=== PATIENT | female | born 2000 | race Hispanic/Latino ===

== ENCOUNTER 2022-07-31 10:09 | Day surgery (SDC) | payer OTHER ==
[2022-07-31] MEDS ORDERED: Midazolam HCl 2 mg/2 ml Vial ONE (10:38)
[2022-07-31] MEDS ORDERED: Ketorolac Tromethamine 30 MG/ML VIAL ONE (10:38)
[2022-07-31] MEDS ORDERED: Dexamethasone 20 MG/5 ML VIAL ONE (10:38)
[2022-07-31] MEDS ORDERED: Ondansetron PF 4 MG/2 ML Vial ONE (10:38)
[2022-07-31] MEDS ORDERED: Glycopyrrolate 0.2 MG/ML 5 ML SYRINGE ONE (10:38)
[2022-07-31] MEDS ORDERED: PROPOFOL 20 ML ONE (10:38)
[2022-07-31] MEDS ORDERED: Lidocaine 1% PF 5 ML VIAL ONE (10:38)
[2022-07-31] MEDS ORDERED: Fentanyl 100 MCG/2 ML VIAL ONE (10:38)
[2022-07-31 10:47] VITALS: BMI 26.5
[2022-07-31 11:33] LABS: Hemoglobin 12.5 g/dL (12.0-15.5); Mean Corpuscular HGB CONC 36.1 g/dL (32.0-36.0); Mean Corpuscular Hemoglobin 31.5 pg (27.0-33.0); Mean Corpuscular Volume 87.2 fl (81.6-98.3); Mean Platelet Volume 10.2 fl (7.4-10.4); Platelet Count 275 10x3/uL (150-450); RBC Distribution Width 12.4 % (11.5-14.5); Red Blood Cell (RBC) Count 3.97 10x6/uL (3.90-5.03); White Blood Cell (WBC) Count 7.3 10x3/uL (3.5-10.5)
[2022-07-31] MEDS ORDERED: CEFAZOLIN 2 GM VIAL ONE (11:43)
[2022-07-31] MEDS ORDERED: Meperidine HCl/PF 25 MG/ML VIAL ONE (12:19)
== END 2022-07-31 13:25 | disposition home or self-care (01) ==
LOC: CSHSDC 10:09
PROVIDERS: ATTEND Obstetrics & Gynecology
PROC: 10D17ZZ Extraction of Products of Conception, Retained, Via Natural or Artificial Opening (ICD-10-PCS; principal; 2022-07-31)
DX: O02.1 Missed abortion (principal); Z3A.00 Weeks of gestation of pregnancy not specified; F98.8 Other specified behavioral and emotional disorders with onset usually occurring in childhood and adolescence; Z79.899 Other long term (current) drug therapy
CPT/HCPCS: 36415; 85027; 86850; 86900; 86901; 88305; J1100; J1885; J2175; J2250; J2405; J2704; J3010